=== PATIENT | female | born 1990 | race Caucasian/White ===

== ENCOUNTER → 2020-06-07 | Outpatient (CLI) | payer OTHER | END | disposition home or self-care (01) | LOC: LABWHC1 09:36 | PROVIDERS: ATTEND Emergency Medicine | DX: Z20.828 Contact with and (suspected) exposure to other viral communicable diseases (principal) | CPT/HCPCS: U0003; C9803 ==

== ENCOUNTER 2025-02-12 08:28 | Emergency (ER) | payer OTHER ==
[2025-02-12] MEDS: SODIUM CHLORIDE 0.9% 1,000 ML IV ONE (08:47)
[2025-02-12] MEDS: ONDANSETRON 4 MG/2 ML VIAL IVP STA ×2 (08:47→11:52)
--- NOTE | 2025-02-12 08:53 | ED ---
General Adult HPI - General Chief complaint: Seizure Stated complaint: seizure Time Seen by Provider: 02/12/25 08:30 Source: patient, EMS, RN notes reviewed, old records reviewed Mode of arrival: EMS Limitations: no limitations - History of Present Illness Initial comments: This is a 34-year-old female with a past medical history significant for seizure s and atrial fibrillation. According the he left the room when he came back she was seizing and when she stopped she was confused and combative according to EMS. EMS stated that they tried to get vitals and IV but she refused to let them. Patient currently is alert and oriented x 3 she is allowing an IV at this time. Patient states she has had a seizure twice before but is not on any medications. Patient is unaware of she had a CAT scan in the past. Patient denies any recent fever chills or cough. Patient has any drug use or alcohol use. Patient denies being because she has had a tubal ligation. Patient denies any chest pain difficulty breathing shortness of breath. Patient has any recent abdominal pain patient denies any nausea vomiting - Related Data Previous Rx's Medication Instructions Recorded Metoprolol Tartrate [Lopressor] 12.5 mg PO BID 30 Days #60 tablet 02/12/25 Allergies Allergy/AdvReac Type Severity Reaction Status Date / Time No Known Allergies Allergy Verified 02/12/25 08:40 Review of Systems ROS Statement: Those systems with pertinent positive or pertinent negative responses have been documented in the HPI. ROS Other: All systems not noted in ROS Statement are negative. Past Medical History Past Medical History: Atrial Fibrillation, Seizure Disorder Additional Past Medical History / Comment(s): 2 seizures 02/12/25 History of Any Multi-Drug Resistant Organisms: None Reported Past Surgical History: Tubal Ligation Past Psychological History: Anxiety Smoking Status: Vaper Past Alcohol Use History: None Reported Past Drug Use History: Marijuana General Exam - General Exam Comments Initial Comments: GENERAL: Patient is well-developed and well-nourished. Patient is nontoxic and well- hydrated and is in mild distress. ENT: Neck is soft and supple. No significant lymphadenopathy is noted. Oropharynx is clear. Moist mucous membranes. Neck has full range of motion without eliciting any pain. EYES: The sclera were anicteric and conjunctiva were pink and moist. Extraocular movements were intact and pupils were equal round and reactive to light. Eyelids were unremarkable. PULMONARY: Unlabored respirations. Good breath sounds bilaterally. No audible rales rhonchi or wheezing was noted. CARDIOVASCULAR: There is a regular rate and rhythm without any murmurs gallops or rubs. ABDOMEN: Soft and nontender with normal bowel sounds. SKIN: Skin is clear with no lesions or rashes and otherwise unremarkable. NEUROLOGIC: Patient is alert and oriented x3. Cranial nerves II through XII are grossly intact. Motor and sensory are also intact. Normal speech, volume and content. Symmetrical smile. MUSCULOSKELETAL: Normal extremities with adequate strength and full range of motion. LYMPHATICS: No significant lymphadenopathy is noted PSYCHIATRIC: Normal psychiatric evaluation. Limitations: no limitations Course Vital Signs 02/12/25 02/12/25 08:31 11:22 Temperature 98 F Pulse Rate 121 H 104 H Respiratory 30 H 20 Rate Blood Pressure 135/79 132/74 O2 Sat by Pulse 97 96 Oximetry Medical Decision Making - Medical Decision Making 8 EKG is interpreted by myself. EKG shows atrial fibrillation at 100 bpm QRS is 94 QT interval is 352 QTc is 409. Patient's EKG shows no ST segment elevation or depression. Was pt. sent in by a medical professional or institution (, PA, PONY RIDE ATTENDANT, urgent care, hospital, or long-term...) When possible be specific @ -No Did you speak to anyone other than the patient for history (EMS, parent, family, police, friend...)? What history was obtained from this source @ -No Did you review nursing and triage notes (agree or disagree)? Why? @ -I reviewed and agree with nursing and triage notes Were old charts reviewed (outside hosp., previous admission, EMS record, old EKG, old radiological studies, urgent care reports/EKG's, long-term records)? Report findings @ -No old charts were reviewed Differential Diagnosis? @ -Differential Seizure: Recurrent seizure disorder, febrile seizure, alcohol withdrawal, stimulants, meningitis, encephalitis, intercranial hemorrhage, intracranial tumor, stroke, eclampsia, thyrotoxicosis, hypocalcemia, hyponatremia, hypernatremia, hypomagnesemia, psychogenic, this is not meant to be an all-inclusive list. EKG interpreted by me (3pts min.). @ -As above X-rays interpreted by me (1pt min.). @ -None done CT interpreted by me (1pt min.). @ -CT of the brain shows no acute abnormality U/S interpreted by me (1pt. min.). @ -None done What testing was considered but not performed or refused? (CT, X-rays, U/S, labs)? Why? @ -None What meds were considered but not given or refused? Why? @ -None Did you discuss the management of the patient with other professionals (professionals i.e. DrWhit, PA, PONY RIDE ATTENDANT, lab, RT, psych nurse, social media editor, traditional maori health practitioner, teacher, custodial officer, shoe parts caser)? Give summary @ -No Was smoking cessation discussed for >3mins.? @ -No Was critical care preformed (if so, how long)? @ -No Were there social determinants of health that impacted care today? How? (Homelessness, low income, unemployed, alcoholism, drug addiction, transportati on, low edu. Level, literacy, decrease access to med. care, penitentiary, rehab)? @ -No Was there de-escalation of care discussed even if they declined (Discuss DNR or withdrawal of care, Hospice)? DNR status @ -No What co-morbidities impacted this encounter? (DM, HTN, Smoking, COPD, CAD, Cancer, CVA, ARF, Chemo, Hep., AIDS, mental health diagnosis, sleep apnea, morbid obesity)? @ -None Was patient admitted / discharged? Hospital course, mention meds given and route, prescriptions, significant lab abnormalities, going to OR and other pertinent info. @ -Patient was nauseous while she was in the emergency department she received Zofran and Reglan. Patient's heart rate was initially 100 but it occasionally would go up but it was intermittent it would come back down under 100 but because she went up I did give her a little metoprolol in the IV and I will send her home with metoprolol Undiagnosed new problem with uncertain prognosis? @ -No Drug Therapy requiring intensive monitoring for toxicity (Heparin, Nitro, Insulin, Cardizem)? @ -No Were any procedures done? @ -No Diagnosis/symptom? @ -Seizure generalized Acute, or Chronic, or Acute on Chronic? @ -Acute Uncomplicated (without systemic symptoms) or Complicated (systemic symptoms)? @ -Complicated Side effects of treatment? @ -No Exacerbation, Progression, or Severe Exacerbation? @ -No Poses a threat to life or bodily function? How? (Chest pain, [place], [place], pneumonia, PE, COPD, DKA, ARF, appy, cholecystitis, CVA, Diverticulitis, Homicidal, Suicidal, threat to staff... and all critical care pts) @ -No Diagnosis/symptom? @ -A-fib with rapid ventricular response Acute, or Chronic, or Acute on Chronic? @ -Acute Uncomplicated (without systemic symptoms) or Complicated (systemic symptoms)? @ -Complicated Side effects of treatment? @ -None Exacerbation, Progression, or Severe Exacerbation] @ -No Poses a threat to life or bodily function? @ -No - Lab Data Result diagrams: 02/12/25 08:47 02/12/25 08:47 Lab Results 02/12/25 02/12/25 02/12/25 Range/Units 08:47 08:47 08:47 WBC 9.92 (4.50-10.00) 10*3/uL RBC 5.27 H (4.10-5.20) 10*6/uL Hgb 15.9 H (12.0-15.0) g/dL Hct 46.9 H (37.2-46.3) % MCV 89.0 (80.0-97.0) fL MCH 30.2 (27.0-32.0) pg MCHC 33.9 (32.0-37.0) g/dL Plt Count 267 (140-440) 10*3/uL MPV 10.1 (9.5-12.2) fL Immature Gran % (Auto) 0.2 % Neutrophils % 52.5 % Lymphocytes % 35.0 % Monocytes % 9.7 % Eosinophils % 2.2 % Basophils % 0.4 % Immature Gran # 0.02 (0.00-0.04) 10*3/uL Neutrophils # 5.21 (1.80-7.70) 10*3/uL Lymphocytes # 3.47 (0.90-5.00) 10*3/uL Monocytes # 0.96 (0.20-1.00) 10*3/uL Eosinophils # 0.22 (0.04-0.35) 10*3/uL Basophils # 0.04 (0.00-0.10) 10*3/uL Sodium 139 (137-145) mmol/L Potassium 4.0 (3.5-5.1) mmol/L Chloride 105 (98-107) mmol/L Carbon Dioxide 19 L (22-30) mmol/L Anion Gap 15 mmol/L BUN 9 (7-17) mg/dL Creatinine 0.45 L (0.52-1.04) mg/dL Est GFR (CKD-EPI)AfAm >90 (>60 ml/min/1.73 sqM) Est GFR (CKD-EPI)NonAf >90 (>60 ml/min/1.73 sqM) Glucose 139 H (74-99) mg/dL Lactic Ac Sepsis Rflx Plasma Lactic Acid Randell 4.2 H* (0.7-2.0) mmol/L Calcium 10.2 (8.4-10.2) mg/dL Magnesium 1.7 (1.6-2.3) mg/dL Total Bilirubin 0.5 (0.2-1.3) mg/dL AST 23 (14-36) U/L ALT 15 (4-34) U/L Alkaline Phosphatase 59 (38-126) U/L Total Protein 7.1 (6.3-8.2) g/dL Albumin 4.6 (3.5-5.0) g/dL Urine Color Urine Appearance (Clear) Urine pH (5.0-8.0) Ur Specific Storden (1.001-1.035) Urine Protein (Negative) Urine Glucose (UA) (Negative) Urine Ketones (Negative) Urine Blood (Negative) Urine Nitrite (Negative) Urine Bilirubin (Negative) Urine Urobilinogen (<2.0) mg/dL Ur Leukocyte Esterase (Negative) Urine RBC (0-5) /hpf Urine WBC (0-5) /hpf Ur Squamous Epith Cells (0-4) /hpf Hyaline Casts (0-2) /lpf Urine Mucus (None) /hpf Urine HCG, Qual (Not Detectd) Urine Opiates Screen (NotDetected) Ur Oxycodone Screen (NotDetected) Urine Methadone Screen (NotDetected) Ur Barbiturates Screen (NotDetected) U Tricyclic Antidepress (NotDetected) Ur Phencyclidine Scrn (NotDetected) Ur Amphetamines Screen (NotDetected) U Methamphetamines Scrn (NotDetected) U Benzodiazepines Scrn (NotDetected) Urine Cocaine Screen (NotDetected) U Marijuana (THC) Screen (NotDetected) 02/12/25 02/12/25 02/12/25 Range/Units 09:16 10:30 10:30 WBC (4.50-10.00) 10*3/uL RBC (4.10-5.20) 10*6/uL Hgb (12.0-15.0) g/dL Hct (37.2-46.3) % MCV (80.0-97.0) fL MCH (27.0-32.0) pg MCHC (32.0-37.0) g/dL Plt Count (140-440) 10*3/uL MPV (9.5-12.2) fL Immature Gran % (Auto) % Neutrophils % % Lymphocytes % % Monocytes % % Eosinophils % % Basophils % % Immature Gran # (0.00-0.04) 10*3/uL Neutrophils # (1.80-7.70) 10*3/uL Lymphocytes # (0.90-5.00) 10*3/uL Monocytes # (0.20-1.00) 10*3/uL Eosinophils # (0.04-0.35) 10*3/uL Basophils # (0.00-0.10) 10*3/uL Sodium (137-145) mmol/L Potassium (3.5-5.1) mmol/L Chloride (98-107) mmol/L Carbon Dioxide (22-30) mmol/L Anion Gap mmol/L BUN (7-17) mg/dL Creatinine (0.52-1.04) mg/dL Est GFR (CKD-EPI)AfAm (>60 ml/min/1.73 sqM) Est GFR (CKD-EPI)NonAf (>60 ml/min/1.73 sqM) Glucose (74-99) mg/dL Lactic Ac Sepsis Rflx Y Plasma Lactic Acid Randell (0.7-2.0) mmol/L Calcium (8.4-10.2) mg/dL Magnesium (1.6-2.3) mg/dL Total Bilirubin (0.2-1.3) mg/dL AST (14-36) U/L ALT (4-34) U/L Alkaline Phosphatase (38-126) U/L Total Protein (6.3-8.2) g/dL Albumin (3.5-5.0) g/dL Urine Color Colorless Urine Appearance Cloudy H (Clear) Urine pH 7.0 (5.0-8.0) Ur Specific Storden 1.014 (1.001-1.035) Urine Protein Negative (Negative) Urine Glucose (UA) Negative (Negative) Urine Ketones Negative (Negative) Urine Blood Negative (Negative) Urine Nitrite Negative (Negative) Urine Bilirubin Negative (Negative) Urine Urobilinogen <2.0 (<2.0) mg/dL Ur Leukocyte Esterase Negative (Negative) Urine RBC 1 (0-5) /hpf Urine WBC 4 (0-5) /hpf Ur Squamous Epith Cells 7 H (0-4) /hpf Hyaline Casts 7 H (0-2) /lpf Urine Mucus Rare H (None) /hpf Urine HCG, Qual Not Detected (Not Detectd) Urine Opiates Screen Not Detected (NotDetected) Ur Oxycodone Screen Not Detected (NotDetected) Urine Methadone Screen Not Detected (NotDetected) Ur Barbiturates Screen Not Detected (NotDetected) U Tricyclic Antidepress Not Detected (NotDetected) Ur Phencyclidine Scrn Not Detected (NotDetected) Ur Amphetamines Screen Not Detected (NotDetected) U Methamphetamines Scrn Not Detected (NotDetected) U Benzodiazepines Scrn Not Detected (NotDetected) Urine Cocaine Screen Not Detected (NotDetected) U Marijuana (THC) Screen Detected H (NotDetected) Disposition Clinical Impression: Generalized seizure, Atrial fibrillation Disposition: HOME SELF-CARE Instructions (If sedation given, give patient instructions): Seizure/Epilepsy Discharge Instructions & Follow-Up Additional Instructions: Patient should not drive until she is cleared by neurology Patient should take metoprolol as prescribed Prescriptions: Metoprolol Tartrate [Lopressor] 12.5 mg PO BID 30 Days #60 tablet Is patient prescribed a controlled substance at d/c from ED?: No Referrals: Kemal Hoover DO [STAFF PHYSICIAN] - 1-2 days Time of Disposition: 11:45
[2025-02-12 09:00] LABS: Basophils # (A) 0.04 10*3/uL (0.00-0.10); Basophils % (A) 0.4 %; Eosinophils # (A) 0.22 10*3/uL (0.04-0.35); Eosinophils % (A) 2.2 %; HCT 46.9 % (37.2-46.3); HGB 15.9 g/dL (12.0-15.0); Lymphocytes # (A) 3.47 10*3/uL (0.90-5.00); MCH 30.2 pg (27.0-32.0); MCHC 33.9 g/dL (32.0-37.0); Mean Platelet Volume 10.1 fL (9.5-12.2); Monocytes # (A) 0.96 10*3/uL (0.20-1.00); Monocytes % (A) 9.7 %; Neutrophils # (A) 5.21 10*3/uL (1.80-7.70); Neutrophils % (A) 52.5 %; Platelet Count 267 10*3/uL (140-440); RBC 5.27 10*6/uL (4.10-5.20); RDW 12.9 % (11.5-14.5); WBC 9.92 10*3/uL (4.50-10.00)
[2025-02-12 09:11] VITALS: TEMP 98
[2025-02-12 09:21] LABS: ALT 15 U/L (4-34); AST 23 U/L (14-36); African American GFR (CKD) >90 (>60 ml/min/1.73 sqM); Albumin 4.6 g/dL (3.5-5.0); Alkaline Phosphatase 59 U/L (38-126); Anion Gap 15 mmol/L; Blood Urea Nitrogen 9 mg/dL (7-17); Calcium 10.2 mg/dL (8.4-10.2); Carbon Dioxide 19 mmol/L (22-30); Chloride 105 mmol/L (98-107); Glucose 139 mg/dL (74-99); Magnesium 1.7 mg/dL (1.6-2.3); Non-African American GFR(CKD) >90 (>60 ml/min/1.73 sqM); Sodium 139 mmol/L (137-145); Total Bilirubin 0.5 mg/dL (0.2-1.3); Total Protein 7.1 g/dL (6.3-8.2)
--- NOTE | 2025-02-12 09:36 | CT ---
EXAMINATION TYPE: CT brain wo con DATE OF EXAM: 02/12/2025 COMPARISON: None. CLINICAL INDICATION: Female, 34 years old with history of New onset seizure; PHH, Seizure. CT DLP: 1093.4 mGycm Automated exposure control for dose reduction was used. FINDINGS: No acute intracranial hemorrhage, mass effect, or midline shift. Ventricles and sulci are within norm al limits in size for patient's age. Dalal-white matter differentiation is preserved. Globes are intac t and the visualized paranasal sinuses are clear. Nasal septum is deviated to the left of midline. IMPRESSION: No acute intracranial hemorrhage or midline shift. [facility], , 02/12/2025 9:34 AM
[2025-02-12] MEDS: METOCLOPRAMIDE 5 MG/ML 2 ML VIAL IVP STA (10:03)
[2025-02-12] MEDS: LORazepam 2 MG/ML INJ IV STA (10:36)
[2025-02-12 10:46] LABS: Appearance,Urine Cloudy (Clear); Bilirubin,Urine Negative (Negative); Blood,Urine Negative (Negative); Color,Urine Colorless; Glucose,Urine (UA) Negative (Negative); Hyaline Casts,Urine 7 /lpf (0-2); Ketones,Urine Negative (Negative); Leukocyte Esterase,Urine Negative (Negative); Mucus,Urine Rare /hpf; Nitrite,Urine Negative (Negative); Protein,Urine Negative (Negative); RBC,Urine 1 /hpf (0-5); Specific Gravity,Urine 1.014 (1.001-1.035); Squamous Epithelial Cell,Urine 7 /hpf (0-4); Urobilinogen,Urine <2.0 mg/dL (<2.0); WBC,Urine 4 /hpf (0-5)
[2025-02-12 10:56] LABS: Amphetamine Screen,Urine Not Detected (NotDetected); Barbiturate Screen,Urine Not Detected (NotDetected); Benzodiazepines Screen,Urine Not Detected (NotDetected); Cocaine Screen,Urine Not Detected (NotDetected); Methadone Screen, Urine Not Detected (NotDetected); Opiate Screen,Urine Not Detected (NotDetected); Oxycodone Screen, Urine Not Detected (NotDetected); Phencyclidine Screen,Urine Not Detected (NotDetected); Tricyclic Antidepressant,Urine Not Detected (NotDetected); Urn Cannabinoid Scrn Detected (NotDetected)
[2025-02-12 11:23] VITALS: RESP 20
[2025-02-12] MEDS: ONDANSETRON 4 MG ODT STARTER PACK 2 TAB BTL PO STA (11:53)
[2025-02-12] MEDS: METOPROLOL TARTRATE 5 MG/5 ML VIAL IVP STA (11:54)
[2025-02-12 12:31] VITALS: BP 134/88; PULSE 100
== END 2025-02-12 12:32 | disposition home or self-care (01) ==
LOC: EC 08:28
DX: G40.309 Generalized idiopathic epilepsy and epileptic syndromes, not intractable, without status epilepticus (principal); I48.91 Unspecified atrial fibrillation; F17.290 Nicotine dependence, other tobacco product, uncomplicated
CPT/HCPCS: 36415; 93005; 80053; 83605; 83735; 85025; 81001; 81025; 80306; 70450; 99285; 96374; 96375; 96376; 96361; J2060; J2765; J2405; S0119

== ENCOUNTER → 2025-05-02 | Outpatient (CLI) | payer OTHER ==
--- NOTE | 2025-05-02 18:33 | MR ---
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 COMPARISON: CT brain 02/12/2025. TECHNIQUE: Multi planar, multi sequence imaging was performed through the brain without intravenous c ontrast. FINDINGS: The yadav-white junctions, ventricular system, basal cisterns appear unremarkable. Age-appropriate cer ebral parenchymal volume. Diffusion-weighted imaging shows no evidence of restricted diffusion to sug gest acute/subacute infarct. Intracranial arterial flow voids are maintained. 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 No subtle deviation of the pituitary stalk identified. The bilateral mesial temporal lobes appear symmetric and unremarkable. No FLAIR signal abnormalities. The susceptibility weighted images do not reveal any evidence for micro-hemorrhage. The bone marrow signal is within normal limits. The globes are unremarkable. Minimal mucosal thicke makenzie of the ethmoid sinuses. IMPRESSION: 1. No evidence of acute/subacute infarct. No FLAIR signal abnormalities. 2. 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 [facility], , 05/02/2025 6:31 PM
== END | disposition home or self-care (01) ==
LOC: RADMRIMAIN 17:20
PROVIDERS: ATTEND Psychiatry & Neurology Neurology
DX: G40.109 Localization-related (focal) (partial) symptomatic epilepsy and epileptic syndromes with simple partial seizures, not intractable, without status epilepticus (principal); E23.6 Other disorders of pituitary gland
CPT/HCPCS: 70551